=== PATIENT | female | born 1955 | race Caucasian/White ===

== ENCOUNTER 2021-12-29 12:57 | Emergency (ER) | payer OTHER, BC ==
[~2021-12-29] VITALS: Ht 160 cm; Wt 60.0 kg
[2021-12-29 13:06] VITALS: BP 169/64
[2021-12-29] MEDS ORDERED: METHOCARBAMOL500 MG PO (15:14)
[2021-12-29] MEDS ORDERED: NAPROXEN500 MG PO (15:14)
[2021-12-29] MEDS ORDERED: HYDROCO/APAP1 TA9 PO (15:14)
[2021-12-29 15:17] VITALS: BP 169/64
== END 2021-12-29 15:25 | disposition home or self-care (01) | DRG 552 ==
LOC: ED 12:57
DX: S32.020A Wedge compression fracture of second lumbar vertebra, initial encounter for closed fracture (principal); M54.2 Cervicalgia; R51.9 Headache, unspecified; I11.0 Hypertensive heart disease with heart failure; I50.9 Heart failure, unspecified; J44.9 Chronic obstructive pulmonary disease, unspecified; F17.210 Nicotine dependence, cigarettes, uncomplicated; V43.53XA Car driver injured in collision with pick-up truck in traffic accident, initial encounter